=== PATIENT | male | born 1975 | race Caucasian/White ===

== ENCOUNTER → 2016-09-20 | Outpatient (CLI) | payer OTHER ==
--- NOTE | 2016-09-20 10:45 | RADRPT ---
PROCEDURE: BILATERAL US DVT and REFLUX STUDY. CLINICAL INDICATION: Lower extremity edema. TECHNIQUE: Multiple longitudinal and transverse images of the bilateral lower extremity veins were obtained with schaffer scale and color Doppler imaging with augmentation and compression techniques. In addition, the superficial veins were evaluated in the greater saphenous veins at the level of the ankle. COMPARISON: No prior studies are available for comparison. FINDINGS: RIGHT: The right common femoral, femoral, and popliteal veins are normally compressible throughout w ith color flow demonstrating normal filling of these vessels. No filling defects are seen. There is no evidence of reflux seen from the greater saphenous vein down to the ankle. LEFT: The left common femoral, femoral, and popliteal veins are normally compressible throughout wi th color flow demonstrate normal filling of these vessel.No filling defects are seen. There is no e vidence of reflux seen from the greater saphenous vein down to the ankle. IMPRESSION: 1. No evidence of a deep vein thrombosis involving the bilateral lower extremities. 2. There is no evidence of reflux seen from the bilateral greater saphenous veins down to the ankle. RPTAT:PP .Obed Jean MD, MD Date Time Electronically viewed and signed by .Obed Jean MD, on 09/20/2016 10:44 .V/
--- NOTE | 2016-09-21 14:27 | RADRPT ---
PROCEDURE: US bilateral lower extremity arteries. CLINICAL INDICATION: Bilateral leg pain. Claudication that interferes significantly with the kristian ent's lifestyle. TECHNIQUE: Multiple longitudinal and transverse images of the bilateral lower extremity arteries w ere obtained with schaffer scale, pulsed Doppler, and color Doppler imaging. COMPARISON: No prior studies are available for comparison. FINDINGS: Right TILE FINISHER:115 cm/sec PSFA:93 cm/sec MSFA:88 cm/sec DSFA:83 cm/sec POP:63 cm/sec MAINSPRING WINDER:41 cm/sec DPA:59 cm/sec Left TILE FINISHER:109 cm/sec PSFA:80 cm/sec MSFA:93 cm/sec DSFA:68 cm/sec POP:68 cm/sec MAINSPRING WINDER:49 cm/sec DPA:25 cm/sec The right ankle-brachial index is 1.0 and the left ankle-brachial index is 1.3. There is normal triphasic flow throughout bilaterally. There is no plaque, stenosis, or occlusion. The toe blood pressures are not detected on the right or left. IMPRESSION: 1. Normal bilateral lower extremity arterial Doppler. 2. The toe blood pressures are not detected on the right or left. RPTAT: QQ .Speedy Robles MD, MD Date Time Electronically viewed and signed by .Speedy Robles MD, on 09/21/2016 14:27 .R/
== END | disposition home or self-care (01) ==
LOC: VAS 07:45
PROVIDERS: ATTEND Podiatrist
DX: M79.605 Pain in left leg (principal); M79.604 Pain in right leg; R60.0 Localized edema
CPT/HCPCS: 93922; 93970

== ENCOUNTER 2018-07-31 15:34 | Day surgery (SDC) | payer OTHER ==
[2018-07-31] VITALS (14 sets, daily range): BP systolic 113–142; BP diastolic 52–79; PULSE 58–68; RESP 10–17; Ht 190.5 cm; Wt 111.6 kg
[~2018-07-31] VITALS: Ht 190.5 cm; Wt 111.6 kg
--- NOTE | 2018-07-31 16:23 | HPN ---
Date/Time of Note Date/Time of Note DATE: 07/31/18 TIME: 16:23 Interval H&P Admission Note Pt. seen H&P reviewed: No system changes MELVINA JOHNSON Jul 31, 2018 16:23
[2018-07-31] MEDS ORDERED: BUPIVACAINE 0.5% (SDV) 30 ML INJ ONE (16:26)
--- NOTE | 2018-07-31 16:29 | PREAC ---
Date/Time of Note Date/Time of Note DATE: 07/31/18 TIME: 16:28 Anesthesia Eval and Record Evaluation Time Pre-Procedure Interview DATE: 07/31/18 TIME: 16:28 Age 43 Sex male NPO: 8 hrs Past Medical History Past Medical History: Includes GI: Obesity (S/P gastric sleeve) Surgery & Anesthesia Issues No known issue Meds Anticoagulation: No Beta Gretchen within 24 hr: No Reason Beta Gretchen not given: Pt. not on B-Gretchen Meds reviewed: Yes Allergies Allergies Reviewed: Yes Labs/Studies Labs Reviewed: Reviewed by anesthesiologist test: N/A Pre-procedure Exam Last vitals Vital Signs Date Temp Pulse Resp B/P (MAP) Pulse Ox O2 O2 Flow FiO2 Time Delivery Rate 07/31/18 98.2 61 16 142/70 99 15:42 (94) Airway: Adequate mouth opening Mallampati: Mallampati II Teeth: Normal Lung: Normal Heart: Normal ASA Physical Status ASA physical status: 2 Emergency: None Planned Anesthetic General/MAC: LMA Planned Pain Management Parenteral pain med Pre-operative Attestations Prior to commencing anesthesia and surgery, the patient was re-evaluated, there was verification of: *The patient's identity *The results of appropriate recent lab work and preoperative vital signs *The above evaluation not changing prior to induction *Anesthetic plan, risk benefits, alternative and complications discussed with patient/family; questions answered; patient/family understands, accepts and wishes to proceed. LEONIDAS GLASER MD Jul 31, 2018 16:29
--- NOTE | 2018-07-31 16:49 | PREAC ---
Date/Time of Note Date/Time of Note DATE: 07/31/18 TIME: 16:48 Anesthesia Eval and Record Evaluation Time Pre-Procedure Interview DATE: 07/31/18 TIME: 16:48 Age 43 Sex male NPO: 8 hrs Preoperative diagnosis right thumb dislocation Planned procedure repair right thumb flexor policis longus tendon and orif distal phalanx Past Medical History Past Medical History: Includes GI: Obesity Surgery & Anesthesia Issues No known issue Meds Anticoagulation: No Beta Gretchen within 24 hr: No Reason Beta Gretchen not given: Pt. not on B-Gretchen Meds reviewed: Yes Allergies Allergies Reviewed: Yes Labs/Studies Labs Reviewed: Reviewed by anesthesiologist test: N/A Pre-procedure Exam Last vitals Vital Signs Date Temp Pulse Resp B/P (MAP) Pulse Ox O2 O2 Flow FiO2 Time Delivery Rate 07/31/18 98.2 61 16 142/70 99 15:42 (94) Airway: Adequate mouth opening, Adequate thyromental dist Mallampati: Mallampati II Teeth: Normal Lung: Normal Heart: Normal ASA Physical Status ASA physical status: 2 Emergency: None Planned Anesthetic General/MAC: ETT Planned Pain Management Parenteral pain med Pre-operative Attestations Prior to commencing anesthesia and surgery, the patient was re-evaluated, there was verification of: *The patient's identity *The results of appropriate recent lab work and preoperative vital signs *The above evaluation not changing prior to induction *Anesthetic plan, risk benefits, alternative and complications discussed with patient/family; questions answered; patient/family understands, accepts and wishes to proceed. Gareth Arauz M.D. Jul 31, 2018 16:49
[2018-07-31] MEDS ORDERED: CEFAZOLIN 2 GM/50 ML (PMX) 50 ML IVPB ONE (16:51)
[2018-07-31] MEDS ORDERED: GLYCOPYRROLATE 0.4 MG INJ ONE (16:56)
[2018-07-31] MEDS ORDERED: PROPOFOL 20 ML ONE (16:56)
[2018-07-31] MEDS ORDERED: ROCURONIUM 50 MG INJ ONE (16:56)
[2018-07-31] MEDS ORDERED: NEOSTIGMINE 3 MG/3 ML SYRINGE ONE (16:56)
[2018-07-31] MEDS ORDERED: ONDANSETRON 4 MG INJ ONE (16:58)
[2018-07-31] MEDS ORDERED: DEXAMETHASONE 4 MG/ML 5 ML INJ ONE (16:58)
[2018-07-31] MEDS ORDERED: FENTAnyl 50 MCG/ML VIAL ONE ×2 (16:58→17:52)
[2018-07-31] MEDS ORDERED: MIDAZOLAM 1 MG/ML 2 ML INJ ONE (16:58)
[2018-07-31] MEDS ORDERED: ONDANSETRON 4 MG INJ IV PRN (17:30)
[2018-07-31] MEDS ORDERED: FENTAnyl 50 MCG/ML VIAL IV PRN ×3 (17:30)
[2018-07-31] MEDS ORDERED: OXYCODONE/ACETAMINOPHEN (5/325) TAB PO PRN ×2 (17:30)
[2018-07-31] MEDS ORDERED: ALBUTEROL 0.083% (NEB) 2.5 MG/3 ML AMP HHN PRN (17:30)
[2018-07-31] MEDS ORDERED: MEPERIDINE 25 MG INJ IV PRN (17:30)
[2018-07-31] MEDS ORDERED: EPHEDrine SULFATE 50 MG/5 ML SYG IV PRN (17:30)
[2018-07-31] MEDS ORDERED: hydrALAzine 20 MG INJ IV PRN (17:30)
[2018-07-31] MEDS ORDERED: HYDROmorphONE 1 MG/5 ML IV SYRINGE IV PRN ×3 (17:30)
[2018-07-31] MEDS ORDERED: LABETALOL HCL 20MG INJ IV PRN (17:30)
[2018-07-31] MEDS ORDERED: TRIMETHOBENZAMIDE 100 MG/ML VIAL IM PRN (17:30)
[2018-07-31] MEDS ORDERED: MIDAZOLAM 1 MG/ML 2 ML INJ IV PRN (17:30)
[2018-07-31] MEDS ORDERED: DIPHENHYDRAMINE 50 MG INJ IV PRN (17:30)
[2018-07-31] MEDS ORDERED: IPRATROPIUM (NEB) 0.5 MG/2.5 ML AMP HHN PRN (17:30)
[2018-07-31] MEDS ORDERED: POLYMYXIN/BACITRACIN 1L IRRIG IRR ONE (17:39)
[2018-07-31] MEDS ORDERED: KETOROLAC 30 MG INJ ONE (17:41)
--- NOTE | 2018-07-31 18:17 | OPPN ---
Date/Time of Note Date/Time of Note DATE: 07/31/18 TIME: 18:17 Operative Report Preoperative Diagnosis Right thumb FPL rupture Right wrist volar ganglion cyst Postoperative Diagnosis Right thumb FPL tendon adhesions Right wrist volar ganglion cyst Operation/Procedure Performed Right thumb FPL tendon tenolysis Excision Right wrist volar ganglion cyst Surgeon see signature line assistant director of admissions none Anesthesia: general Estimated blood loss: 0 - 10 ml's Transfusion Required none Specimen none Grafts/Implants none Complications none MELVINA JOHNSON Jul 31, 2018 18:17
--- NOTE | 2018-07-31 19:39 | OPR ---
DATE OF OPERATION: 07/31/2018 SURGEON: Bobby Castro MD ANESTHESIA: General plus local. PREOPERATIVE DIAGNOSES: 1. Right thumb flexor pollicis longus tendon rupture. 2. Right thumb distal phalanx intra-articular fracture at the interphalangeal joint. 3. Right wrist volar ganglion cyst. POSTOPERATIVE DIAGNOSES: 1. Right thumb flexor pollicis longus tendon adhesions with intact tendon. 2. Right thumb distal phalanx intra-articular fracture at the interphalangeal joint. 3. Right wrist volar ganglion cyst. PROCEDURE: 1. Right thumb flexor pollicis longus tendon tenolysis. 2. Open treatment of right thumb distal phalanx intra-articular fracture at the interphalangeal joint without fixation. 3. Excision of right wrist volar ganglion. OPERATIVE FINDINGS: 1. Intact right thumb flexor pollicis longus tendon with scar tissue and tendon adhesions at the level of the proximal phalanx and interphalangeal joint. 2. Intra-articular fracture of the right thumb distal phalanx with extension into interphalangeal joint with callus formation. 3. Right wrist volar ganglion. INDICATION FOR PROCEDURE: A 43-year-old male with injury to the right thumb who was seen in clinic and was unable to flex his thumb at the interphalangeal joint. He also had volar wrist ganglion which was longstanding. We discussed the options. The patient elected to proceed with surgery for both these problems, understanding the risks and benefits. DESCRIPTION OF PROCEDURE: The patient was seen in the preoperative area. All further questions were answered. Again, he gave informed consent, understanding the risks and benefits. He was taken to the operative suite and placed in supine position. Ancef 2 grams IV given and tourniquet placed on the right upper extremity. Right upper extremity was prepped with ChloraPrep stick and draped in the usual sterile fashion. Esmarch bandage was used to exsanguinate the extremity and tourniquet inflated to 250 mmHg. Attention was first turned to the volar wrist ganglion, and a longitudinal incision over the FCR tendon was utilized, with sharp dissection carried down through the skin and subcutaneous tissue. The radial artery was draped over the volar wrist ganglion and was carefully dissected away from the ganglion cyst. The FCR tendon sheath was incised and the FCR tendon retracted ulnarly. The ganglion cyst was dissected down to its origin at the volar radiocarpal joint. The cyst was completely excised with a small portion of the volar wrist capsule. The wound was copiously irrigated and skin was not closed in order to evaluate the FPL tendon. Attention was turned to the thumb and a zigzag Wing-type incision was utilized over the volar aspect of the interphalangeal joint, with sharp dissection carried down through the skin and subcutaneous tissue. Tenotomy scissors was used to divide the soft tissues overlying the flexor sheath, and the digital nerves were protected. The flexor sheath was incised along its midline at the level of the interphalangeal joint as well as the distal aspect of the proximal phalanx. The tendon was found to be intact in this area. The tendon was attached to a bony insertion at the distal phalanx with callus formation at the fracture site. There was significant scar tissue surrounding the tendon which was preventing it from gliding. A tenolysis was performed of the flexor pollicis longus tendon using tenotomy scissors, Adson forceps, Ragnell retractor as well as a [place] elevator. The tendon was freed up from the surrounding scar tissue, and attention was then turned to the distal phalanx fracture. The fracture was stable with early callus formation, and decision was made not to utilize any further fixation. Attention was then turned back to the wrist, and the FPL tendon was identified proximally and tension was pulled on the FPL tendon, and the thumb was found to flex at the MP joint as well as the IP joint. Wounds were copiously irrigated and skin closed with 5-0 nylon. Xeroform placed on the wounds followed by sterile gauze, Webril and bias dressing. Tourniquet deflated after 41 minutes, and the fingers and thumb were pink, warm and well perfused. The patient was awakened from anesthesia and taken to the postoperative suite in stable condition. He tolerated the procedure well without complication. SPECIMENS: None. ESTIMATED BLOOD LOSS: 5 mL COUNTS: Sponge, instrument, needle counts were correct. TOURNIQUET TIME: 40 minutes. CONDITION ON DISCHARGE: Stable. The patient was given nonrefillable 5-day prescription for pain medication for the surgery today. Dictated By: BOBBY DELGADO/SHARIF Conf#: [id number] DID#: [id number] [facility]
[2018-08-01] MEDS ORDERED: INFLUENZA VIRUS VACCINE 0.5 ML (DISPENSING) IM* ONE (09:00)
--- NOTE | 2018-08-01 12:41 | PAC ---
Date/Time of Note Date/Time of Note DATE: 08/01/18 TIME: 12:41 Post-Anesthesia Notes Post-Anesthesia Note Last documented vital signs Vital Signs Date Temp Pulse Resp B/P (MAP) Pulse Ox O2 O2 Flow FiO2 Time Delivery Rate 07/31/18 68 16 140/79 97 Room Air 19:30 (99) 07/31/18 98.0 18:30 Activity: WNL Respiratory function: WNL Cardiovascular function: WNL Mental status: Baseline Pain reasonably controlled: Yes Hydration appropriate: Yes Nausea/Vomiting absent: Yes Gareth Arauz M.D. Aug 01, 2018 12:41
== END 2018-07-31 20:10 | disposition home or self-care (01) ==
LOC: SDS 15:34
PROVIDERS: ATTEND Orthopaedic Surgery Hand Surgery
DX: S66.011D Strain of long flexor muscle, fascia and tendon of right thumb at wrist and hand level, subsequent encounter (principal); X58.XXXD Exposure to other specified factors, subsequent encounter; S62.521D Displaced fracture of distal phalanx of right thumb, subsequent encounter for fracture with routine healing; M67.431 Ganglion, right wrist
CPT/HCPCS: 25111; 26440; 73140; J0690; J1100; J1170; J1885; J2250; J2405; J2710; J3010; 90686